=== PATIENT | female | born 1985 | race Caucasian/White ===

== ENCOUNTER 2016-10-31 18:34 | Emergency (ER) | payer BC ==
[~2016-10-31] VITALS: Ht 157.5 cm; Wt 94.3 kg
[~2016-10-31 18:34] MED LIST: Micronor,Nor-Q-D,Err PO
[2016-10-31 20:00] LABS: HEMATOCRIT 23.7 % (36.0-46.0); MCH 29.6 PG (29.0-34.0); MCHC 33.3 G/DL (30.0-36.0); MCV 88.8 FL (83-99); MEAN PLAT.VOLUME 10.2 uM^3 (9.5-12.4); NRBC (%) 0.4 /100 WBC (0-0); PLATELET COUNT 236 K/uL (156-360); RBC DIS.WIDTH-SD 41.7 % (39-53)
[2016-10-31 20:01] LABS: RED BLOOD COUNT 2.67 M/uL (3.80-5.20)
[2016-10-31 20:11] LABS: D-DIMER ELISA 1.32 mg/L FEU (< 0.57)
[2016-10-31 20:12] LABS: CHLORIDE 109 mEq/L (99-109); POTASSIUM 4.2 mEq/L (3.7-5.4); SODIUM 140 mEq/L (136-147)
[2016-10-31 20:14] LABS: GLUCOSE 87 mg/dL (70-99)
[2016-10-31 20:15] LABS: ANION GAP 9 MEQ/L (2-14)
[2016-10-31 20:18] LABS: GFR ESTIMATE (CALCULATED) > 59 mL/min/
[2016-10-31 20:19] LABS: UREA NITROGEN (BUN) 11 mg/dL (9-23)
[2016-10-31 22:38] VITALS: BP 134/77
[2016-10-31 23:00] VITALS: BP 130/71
[2016-11-01] VITALS: BP 113/57
[2016-11-01 01:00] VITALS: BP 113/57
== END 2016-11-01 01:00 | disposition home or self-care (01) ==
LOC: EME 18:34
PROVIDERS: Nurse Practitioner Family
PROC: 30233N1 Transfusion of Nonautologous Red Blood Cells into Peripheral Vein, Percutaneous Approach (ICD-10-PCS; principal; 2016-10-31)
DX: D62 Acute posthemorrhagic anemia (principal); R42 Dizziness and giddiness; R06.00 Dyspnea, unspecified
CPT/HCPCS: 80048; 85027; 85379; 86850; 86900; 86901; 86920; 99281; 99285; J2405; J7030; P9016